=== PATIENT | female | born 1990 | race Caucasian/White ===

== ENCOUNTER 2017-04-12 07:46 | Emergency (ER) | payer BC, OTHER ==
[2017-04-12 08:08] VITALS: TEMP 99.5
[2017-04-12 08:17] VITALS: BP 156/95; PULSE 110; RESP 18; O2SAT 100
[2017-04-12] MEDS ORDERED: KETOROLAC TROMETHAMINE 30 MG/ML SOL IM ONE (09:14)
[2017-04-12] MEDS ORDERED: KETOROLAC TROMETHAMINE 30 MG/ML SOL ONE (09:29)
== END 2017-04-12 10:05 | disposition home or self-care (01) | DRG 866 ==
LOC: ED 07:46
DX: B26.9 Mumps without complication (principal)
CPT/HCPCS: 99283; J1885

== ENCOUNTER 2018-08-25 05:20 | Inpatient (IN) | payer OTHER ==
[2018-08-25] MEDS ORDERED: CITRIC ACID/SODIUM CITRATE SOL PO ONE (05:26)
[2018-08-25] MEDS ORDERED: CEFAZOLIN (PREMIX) 1 GM 1 GM/50 ML SOL IV SCH (05:30)
[2018-08-25 06:13] LABS: BASOPHILS % (AUTO) 0 % (0-3); EOSINOPHILS % (AUTO) 1 % (0-9); HEMATOCRIT 31 % (35-47); HEMOGLOBIN 9.8 gm/dl (12.0-15.5); LYMPHOCYTES % (AUTO) 16.9 % (10-50); MEAN CORPUSCULAR HEMOGLOBIN 22.6 pg (27.0-32.0); MEAN CORPUSCULAR HGB CONC 31.7 gm/dl (32.0-36.0); MONOCYTES % (AUTO) 8.9 % (0-12); NEUTROPHILS % (AUTO) 72.6 % (37-80)
[2018-08-25] MEDS: LACTATED RINGERS 1,000 ML IV SCH ×3 (06:13→15:48)
[2018-08-25 06:20] LABS: MEAN CORPUSCULAR VOLUME 71 fL (81-99)
[2018-08-25 06:44] LABS: HYPOCHROMASIA SL
[2018-08-25 07:06] LABS: ABO A; ANTIBODY SCREEN Negative; RH TYPE Positive
[2018-08-25] MEDS ORDERED: LACTATED RINGERS 1,000 ML with OXYTOCIN 10000 MU/ML 20 MU IV ONE ×2 (07:35→07:54)
[2018-08-25] MEDS ORDERED: ONDANSETRON HCL 4 MG/2 ML SOL IV PRN (08:14)
[2018-08-25] MEDS ORDERED: DIPHENHYDRAMINE 25 MG CAP PO PRN (08:14)
[2018-08-25] MEDS ORDERED: BENZOCAINE/MENTHOL 1 SPR TOP PRN (08:14)
[2018-08-25] MEDS ORDERED: FLEET ENEMA PR PRN (08:14)
[2018-08-25] MEDS ORDERED: TEMAZEPAM 15MG 15 MG CAP PO PRN (08:14)
[2018-08-25] MEDS ORDERED: WITCH HAZEL 1 EA PAD TOP PRN (08:14)
[2018-08-25] MEDS ORDERED: METHYLERGONOVINE MALEATE 0.2 MG TAB PO PRN (08:14)
[2018-08-25] MEDS ORDERED: BISACODYL 10 MG SUP PR PRN (08:14)
[2018-08-25] MEDS ORDERED: DIPHENHYDRAMINE 25 MG CAP ONE (08:57)
[2018-08-25] MEDS ORDERED: HYDROXYZINE HYDROCHLORIDE 25 MG/ML SOL IM PRN (10:33)
[2018-08-25] MEDS ORDERED: SODIUM CHLORIDE 0.9% 500 ML 500 ML IV ONE (10:35)
[2018-08-25] MEDS ORDERED: PROMETHAZINE HYDROCHLORIDE 25 MG/ML SOL ONE (10:43)
[2018-08-25] MEDS: PROMETHAZINE HYDROCHLORIDE 25 MG/ML SOL IV PRN ×2 (10:50→20:19)
[2018-08-25 11:33] LABS: APPEARANCE,URINE Clear; BILIRUBIN,URINE NEGATIVE (NEGATIVE); COLOR,URINE Light yellow; GLUCOSE, URINE (UA) NEGATIVE (NEGATIVE); KETONES,URINE NEGATIVE (NEGATIVE); LEUKOCYTE ESTERASE ,URINE NEGATIVE (NEGATIVE); NITRATE,URINE NEGATIVE (NEGATIVE); OCCULT BLOOD,URINE NEGATIVE (NEG-TRACE); UROBILINOGEN,URINE 0.2 (0.2-1.0 EU)
[2018-08-25 11:43] LABS: BACTERIA RARE (< 1+); CRYSTALS NEGATIVE (0-3 AVE/HPF); RBC,URINE 0-2 (0-3AV/HPF); WBC,URINE 0-2 (0-5AV/HPF)
[2018-08-25] MEDS ORDERED: LORAZEPAM 2 MG/ML 10ML MDV 2 MG/ML VIAL IV ONE (12:15)
[2018-08-25] MEDS ORDERED: LORAZEPAM 2 MG/ML SOL ONE (12:27)
[2018-08-25] MEDS: SODIUM CHLORIDE 0.9% FLUSH 10 ML SOL IV SCH ×4 (12:28→22:21)
[2018-08-25] MEDS: DOCUSATE SODIUM 100 MG SGL PO SCH ×3 (13:42→20:31)
[2018-08-25] MEDS: FLUOXETINE HYDROCHLORIDE 10 MG CAP PO SCH (13:42)
[2018-08-25] MEDS: FOLIC ACID 1 MG TAB PO SCH (13:42)
[2018-08-25] MEDS: MULTIVITAMIN2 1 EA TAB PO SCH (13:43)
[2018-08-25] MEDS: KETOROLAC TROMETHAMINE 30 MG/ML SOL IV PRN ×2 (16:13→22:20)
[2018-08-25] MEDS ORDERED: LORAZEPAM 0.5 MG TAB PO PRN (18:15)
[2018-08-25] MEDS ORDERED: LORAZEPAM 0.5 MG TAB ONE (18:23)
[2018-08-26] MEDS: LACTATED RINGERS 1,000 ML IV SCH ×3 (02:57→12:31)
[2018-08-26] MEDS: APAP/HYDROCODONE 1 EACH TABLET PO PRN ×3 (02:57→21:38)
[2018-08-26] MEDS: KETOROLAC TROMETHAMINE 30 MG/ML SOL IV PRN (04:57)
[2018-08-26] MEDS: SODIUM CHLORIDE 0.9% FLUSH 10 ML SOL IV SCH ×2 (05:35→11:00)
[2018-08-26] MEDS ORDERED: FLUOXETINE HYDROCHLORIDE 10 MG CAP ONE (10:33)
[2018-08-26] MEDS: FOLIC ACID 1 MG TAB PO SCH (10:49)
[2018-08-26] MEDS: DOCUSATE SODIUM 100 MG SGL PO SCH ×2 (10:50→21:38)
[2018-08-26] MEDS: FLUOXETINE HYDROCHLORIDE 10 MG CAP PO SCH (10:50)
[2018-08-26] MEDS: MULTIVITAMIN2 1 EA TAB PO SCH (10:50)
[2018-08-26] MEDS: IBUPROFEN 600 MG TAB PO PRN (14:05)
[2018-08-26 20:52] VITALS: TEMP 98.2; O2SAT 97
[2018-08-26] MEDS: FERROUS GLUCONATE 324 MG TABLET PO SCH (21:38)
[2018-08-27] MEDS: SODIUM CHLORIDE 0.9% FLUSH 10 ML SOL IV SCH ×2 (01:48→05:55)
[2018-08-27] MEDS: IBUPROFEN 600 MG TAB PO PRN ×2 (03:04→15:36)
[2018-08-27] MEDS: FOLIC ACID 1 MG TAB PO SCH (09:06)
[2018-08-27] MEDS: APAP/HYDROCODONE 1 EACH TABLET PO PRN ×2 (09:06→18:32)
[2018-08-27] MEDS: FERROUS GLUCONATE 324 MG TABLET PO SCH (09:06)
[2018-08-27] MEDS: FLUOXETINE HYDROCHLORIDE 10 MG CAP PO SCH (09:06)
[2018-08-27] MEDS: DOCUSATE SODIUM 100 MG SGL PO SCH (09:06)
[2018-08-27] MEDS: MULTIVITAMIN2 1 EA TAB PO SCH (09:06)
[2018-08-27 09:12] VITALS: BP 128/82; PULSE 100; RESP 20
== END 2018-08-27 18:45 | disposition home or self-care (01) | DRG 788 ==
LOC: OB 05:20 → UNDOADMIN 05:20 → UNDODISIN 08-27 18:45
PROVIDERS: ADMIT Family Medicine; ATTEND Family Medicine
PROC: 10D00Z1 Extraction of Products of Conception, Low, Open Approach (ICD-10-PCS; principal; 2018-08-25 06:20)
DX: O75.82 Onset (spontaneous) of labor after 37 completed weeks of gestation but before 39 completed weeks gestation, with delivery by (planned) cesarean section (principal); Z3A.39 39 weeks gestation of pregnancy; Z37.0 Single live birth; O69.81X0 Labor and delivery complicated by cord around neck, without compression, not applicable or unspecified
CPT/HCPCS: 36415; 59025; 81001; 85018; 85025; 86850; 86900; 86901; 99070; J0690; J1885; J2060; J2274; J2405; J2550; J2590; A6402; A9270-GY

== ENCOUNTER 2018-11-28 10:47 | Inpatient (IN) | payer OTHER ==
[2018-11-28] MEDS ORDERED: CEFTRIAXONE 1 GM PDS 1 GM in SODIUM CHLORIDE 0.9% 50 ML 50 ML IV ONE (11:00)
[2018-11-28] MEDS ORDERED: SODIUM CHLORIDE 0.9% 1000ML 1,000 ML IV ONE ×2 (11:00→13:15)
[2018-11-28] MEDS ORDERED: CEFTRIAXONE 1 GM PDS ONE (11:22)
[2018-11-28] MEDS ORDERED: SODIUM CHLORIDE 0.9% 50 ML 50 ML IV ONE (11:22)
[2018-11-28] MEDS ORDERED: ACETAMINOPHEN 500 MG 500 MG TAB PO ONE (12:00)
[2018-11-28] MEDS ORDERED: ALBUTEROL NEB SOL 2.5MG/3ML 1 VIAL SOL NEB PRN (13:55)
[2018-11-28] MEDS ORDERED: DM/GUAIFENESIN SYRUP 10 ML SYRP PO PRN (13:55)
[2018-11-28] MEDS ORDERED: AZITHROMYCIN 250 MG TAB PO SCH (14:00)
[2018-11-28] MEDS ORDERED: ACETAMINOPHEN 500 MG 500 MG TAB PO PRN (14:10)
[2018-11-28] MEDS ORDERED: ONDANSETRON 4 MG ODT BU PRN (14:17)
[2018-11-28] MEDS: DEXTROSE/SALINE 0.45/KCL 20MEQ 1,000 ML/1,000 ML SOL IV SCH ×2 (14:28→22:39)
[2018-11-28] MEDS: IBUPROFEN 400 MG TAB PO PRN ×2 (14:28→20:00)
[2018-11-28] MEDS: DOXYCYCLINE 100 MG TAB PO SCH ×2 (14:33→20:00)
[2018-11-28] MEDS: OSELTAMIVIR PHOSPHATE 75 MG CAP PO SCH ×2 (14:33→20:00)
[2018-11-28] MEDS: SODIUM CHLORIDE 0.9% FLUSH 10 ML SOL IV SCH ×2 (16:11→22:30)
[2018-11-28] MEDS: ALBUTEROL/IPRATROPIUM 1 VIAL SOL INH SCH ×2 (16:15→19:59)
[2018-11-28] MEDS ORDERED: DOXYCYCLINE 100 MG TAB PO SCH (21:00)
[2018-11-28] MEDS ORDERED: TEMAZEPAM 15MG 15 MG CAP PO PRN (22:46)
[2018-11-29] MEDS: IBUPROFEN 400 MG TAB PO PRN (04:21)
[2018-11-29] MEDS: ALBUTEROL/IPRATROPIUM 1 VIAL SOL INH SCH ×2 (05:29→08:48)
[2018-11-29] MEDS: DEXTROSE/SALINE 0.45/KCL 20MEQ 1,000 ML/1,000 ML SOL IV SCH (05:30)
[2018-11-29] MEDS: SODIUM CHLORIDE 0.9% FLUSH 10 ML SOL IV SCH (05:49)
[2018-11-29 07:42] LABS: HEMATOCRIT 32 % (35-47); MEAN CORPUSCULAR HEMOGLOBIN 24.8 pg (27.0-32.0); MEAN CORPUSCULAR HGB CONC 31.3 gm/dl (32.0-36.0)
[2018-11-29 07:43] LABS: CALCIUM 8.5 mg/dl (8.5-10.1); CARBON DIOXIDE 23.4 mEq/L (21-32); CREATININE 0.65 mg/dl (0.60-1.00); POTASSIUM 3.4 mMol/L (3.5-5.1)
[2018-11-29 07:55] LABS: MEAN CORPUSCULAR VOLUME 79 fL (81-99)
[2018-11-29 08:21] LABS: INFLUENZA A NEGATIVE (NEGATIVE); INFLUENZA B POSITIVE (NEGATIVE)
[2018-11-29] MEDS ORDERED: CEFTRIAXONE 1 GM PDS ONE (08:21)
[2018-11-29] MEDS ORDERED: SODIUM CHLORIDE 0.9% 50 ML 50 ML IV ONE (08:21)
[2018-11-29] MEDS: DOXYCYCLINE 100 MG TAB PO SCH (08:39)
[2018-11-29] MEDS: OSELTAMIVIR PHOSPHATE 75 MG CAP PO SCH (08:39)
[2018-11-29 08:45] LABS: BAND NEUTROPHILS % (MANUAL) 4 %; BASOPHILS % (MANUAL) 1 % (0-3); EOSINOPHILS % (MANUAL) 0 % (0-9); LYMPHOCYTES % (MANUAL) 14 % (10-50); MONOCYTES % (MANUAL) 16 % (0-12); NEUTROPHILS % (MANUAL) 65 % (37-80)
[2018-11-29 08:46] LABS: ANISOCYTOSIS SLIGHT AMT; HYPOCHROMASIA SLIGHT AMT
[2018-11-29 08:54] VITALS: RESP 16
[2018-11-29 08:56] VITALS: BP 100/62; TEMP 96.3
[2018-11-29 09:00] VITALS: PULSE 80; O2SAT 98
[2018-11-29] MEDS ORDERED: CEFTRIAXONE 1 GM PDS 1 GM in SODIUM CHLORIDE 0.9% 50 ML 50 ML IV ONE (09:00)
[2018-11-29] MEDS ORDERED: AZITHROMYCIN 250 MG TAB PO SCH (09:00)
== END 2018-11-29 11:00 | disposition home or self-care (01) | DRG 195 ==
LOC: INFUSION 10:47 → ACUTE CARE 13:00
PROVIDERS: ADMIT Family Medicine; ATTEND Family Medicine
DX: J09.X2 Influenza due to identified novel influenza A virus with other respiratory manifestations (principal); J18.9 Pneumonia, unspecified organism
CPT/HCPCS: 36415; 80048; 85007; 85027; 87040; 87804; 94640; 96365; 96366; J0696; J7613; A9270-GY

== ENCOUNTER 2018-12-23 18:25 | Emergency (ER) | payer OTHER ==
[2018-12-23 18:56] VITALS: RESP 16; TEMP 97.7
[2018-12-23 19:12] VITALS: BP 136/89; PULSE 80; O2SAT 97
== END 2018-12-23 19:10 | disposition home or self-care (01) | DRG 690 ==
LOC: SUPCPDRO 18:25 → ED 18:25
DX: N30.01 Acute cystitis with hematuria (principal)
CPT/HCPCS: 99282